=== PATIENT | female | born 1985 | race Caucasian/White ===

== ENCOUNTER 2024-04-24 14:01 | Outpatient (REF) | payer OTHER, SELFPAY ==
[2024-04-25 14:35] LABS: Amphetamine Screen Urine Not Detected (Not Detect); Barbiturates, Urine Not Detected (Not Detect); Benzodiazepines Screen Urine Not Detected (Not Detect); Buprenorphine Scr Not Detected (Not Detect); Cannabinoid Screen Urine POSITIVE (Not Detect); Cocaine Screen Urine Not Detected (Not Detect); Fentanyl, urine Not Detected (Not Detect); Methadone Screen, Urine Not Detected (Not Detect); Opiate Screen Urine Not Detected (Not Detect); Oxycodone Screen Urine Not Detected (Not Detect); Phencyclidine Screen Urine Not Detected (Not Detect)
== END 2024-04-24 14:02 | disposition home or self-care (01) ==
LOC: HO.PHPLNP 14:01
PROVIDERS: Visit Provider Psychiatry & Neurology Psychiatry
DX: F14.90 Cocaine use, unspecified, uncomplicated (principal); F32.A Depression, unspecified; F41.9 Anxiety disorder, unspecified
CPT/HCPCS: 80307

== ENCOUNTER 2024-04-25 08:30 | Outpatient (REF) | payer OTHER, SELFPAY ==
[2024-04-25 08:50] LABS: MANUAL DIFF FLAG NO
[2024-04-25 09:30] LABS: Basophils Absolute Auto 0.1 X10*3/uL (0.0-0.2); Basophils Percent Auto 0.6 % (0-2); Eosinophils Absolute Auto 0.2 X10*3/uL (0.0-0.4); Eosinophils Percent Auto 2.4 % (0-4); Hematocrit 37.7 % (37.0-47.0); Hemoglobin 12.2 g/dl (12.0-16.0); Imm Gran Abs Auto 0.03 X10*3/uL (0.00-0.03); Imm Gran Pct Auto 0.4 % (0.0-0.4); Lymphocytes Absolute Auto 1.8 X10*3/uL (1.2-4.9); Lymphocytes Percent Auto 22.9 % (20-40); Mean Corpuscular HGB Conc 32.4 g/dl (31.0-35.0); Mean Corpuscular Hemoglobin 29.5 pg (27.0-33.0); Mean Corpuscular Volume 91.1 fL (80.0-98.0); Monocytes Absolute Auto 0.6 X10*3/uL (0.1-1.2); Monocytes Percent Auto 7.8 % (2-11); Neutrophils Absolute Auto 5.2 x10*3/uL (2.0-8.3); Neutrophils Percent Auto 65.9 % (45-73); Platelet Count 414 X10*3/uL (160-400); Red Blood Count 4.14 X10*6/uL (4.20-5.50); Red Cell Distribution Width 13.4 % (11.0-16.0); White Blood Count 7.9 X10*3/uL (4.8-10.8)
[2024-04-25 10:48] LABS: Estimated Average Glucose 111 mg/dL; Hemoglobin A1C 112.8847 umol/L; Hemoglobin A1c % 5.5 % (<6.0); Total Hemoglobin (HGBA1C) 3090.4183 umol/L
[2024-04-25 11:09] LABS: Alanine Aminotransferase 61 U/L (0-31); Albumin Level 3.6 g/dL (3.5-5.0); Alkaline Phosphatase 129 U/L (39-117); Anion Gap 12 (12-20); Aspartate Amino Transferase 36 U/L (5-31); Bilirubin Total 0.4 mg/dL (0.0-1.0); Blood Urea Nitrogen 10 mg/dL (9-16); Calcium 9.1 mg/dL (8.4-10.2); Carbon Dioxide 25 mmol/L (22-29); Chloride 105 mmol/L (96-108); Estimated Glomerular Filt Rate > 60; Ferritin 33 ng/mL (10-250); Glucose Fasting 94 mg/dL (60-99); Iron 97 mcg/dL (30-160); Magnesium 2.2 mg/dL (1.6-2.6); Percent Iron Saturation 25 % (15-50); Potassium 4.2 mmol/L (3.3-5.1); Sodium 139 mmol/L (135-145); TSH reflex Free T4 0.94 uIU/mL (0.32-4.0); Total Iron Binding Capacity 388 mcg/dL (228-428); Unsaturated Iron Binding 291 ug/dL; Vitamin D 25-OH Total 28.3 ng/mL (>30)
[2024-04-25 11:25] LABS: Folate > 20.0 ng/mL (> or = 4.0); Vitamin B12 376 pg/mL (200-900)
[2024-05-01 06:48] LABS: Vitamin B1 42 nmol/L (8-30)
== END 2024-04-25 08:31 | disposition home or self-care (01) ==
LOC: HO.LAB 08:30
PROVIDERS: Psychiatry & Neurology Psychiatry; PCP Internal Medicine
DX: F41.9 Anxiety disorder, unspecified (principal); F33.9 Major depressive disorder, recurrent, unspecified; Z13.1 Encounter for screening for diabetes mellitus
CPT/HCPCS: 36415; 80053; 82306; 82607; 82728; 82746; 83036; 83540; 83735; 84425; 84443; 85025

== ENCOUNTER 2024-05-08 09:00 | Outpatient (RCR) | payer OTHER, SELFPAY ==
[2024-04-24 09:49] VITALS: BMI 29.4
[2024-04-24 09:50] VITALS: BP 122/68; PULSE 80; TEMP 36.8
--- NOTE | 2024-04-24 10:52 | PC.ADMIT ---
Patient is a 39 female who was referred to [facility] by [facility] d/t patient having positive PHELPS for cocaine prior to giving to her daughter. Patient is Post 1.5 weeks and is currently breast feeding. Patient reports history of gestational diabetes however is currently not on insulin as it appears to have resolved after giving . She has a f/u appointment later this month. Patient stated she used cocaine twice during her once in the beginning and once prior to . Last use 04/11/24. Patient also reported history of using marijuana nightly to sleep last use July 2023 and wine using weekly, last use July 2023. She is currently not using any substances. Patient stated she is following [facility] requirements including her is on a wait list for therapy, will have a power and recovery superintendent that she will be working with once completed IOP along with a parent aid. Patient is alert and oriented x4. Calm and cooperative. She presented with depressed mood and anxious affect. Reports experiencing anxiety. Denied SI, no HI. She was given a copy of her safety plan if needed. Medications reconciled with patient and patient's pharmacy. She reports taking medication as prescribed.
--- NOTE | 2024-04-24 18:01 | HO.PS.ADMBH ---
HPI Date of Service: 04/24/24 Chief Complaint: anxiety,depression,MALLORY Sources of Information: patient interviewed, chart reviewed and crisis/core team assessment reviewed HPI Narrative: Patient is a 39 yo female, 10 days , with history of polysubstance abuse, who was referred through [facility]. My daughter was born on Apr 14. I tested positive for drugs at the time...cocaine in my system so DCF came and did some parameters, and I had to enroll in IOP. Both my population health coach and DCF coordinator thought is was a good idea. I'm happy to be here. They have been really supportive and I appreciate all their help . She reports that there had been visits earlier due to testing positive for cocaine and THC at her 10 week OB visit. She reports that she and her are both trying to distance themselves from friends who use. She says she had only used a couple of times during the , but says she regrets this and is committed to recovery. She lives at home with her , her 21 yo son and their baby Belen. She says she is hoping to transition to but so far has not been able to do still having substances in her system. She denies any safety concerns at home. The baby is healthy. She has been receovering well she says. Sleep has not been great on account of night time feedings but feels she is getting a total of 8 hours and feels this is as to be expected. She reports her mood is good, stable, denies any issues with depression or mood instability. Generalized anxiety which is manageable on Lexapro 10 mg. She says sometimes the thought crosses her mind, but denies having any cravings I've been doing pretty good. It helps we're in a situation - having a at home - so we are not really going out, and we are together staying away . She also notes that having potential consequences (via DCF) also helps keep her and her on track. Overall she relays being motivated and optimistic. She denies any hopelessness or SI. Denies any aggressive ideation, HI, AH, VH or abherrent thoughts or paranoia. Past Psychiatric History: CURRENT MEDICATIONS: escitalopram 10 mg qd lorazepam (says she is usually prescribed but has not taken since before ) [facility] Medical History (Updated 05/02/24 @ 01:17 by Olive Weiss MD) Gestational diabetes Asthma Social History: , has 2 children ages 21 yo son and daughter Lives at home with and children Substance History: Reports cocaine as DOC, social use which was reportedly more regular prior to (a few times/month or less) and had been using occasionally up until when she found out at 10 weeks she was (testing positive at the time). She says she abstained for the duration of the until recently relapsing on 04/11 Reports occasional alcohol and cannabis use, last used Diagnostics Vital Signs (24Hr): Vital Signs - 24 hr 04/24/24 09:50 Temperature 98.2 F Pulse Rate 80 Blood Pressure 122/68 BMI result Body Mass Index 29.4 Meds/Allergies Meds Home Medications ?Medication ?Instructions ?Recorded ?Confirmed ?Type cetirizine 10 mg capsule (Zyrtec) 10 mg PO DAILY 04/24/24 04/24/24 History montelukast 10 mg tablet 10 mg PO BEDTIME 04/24/24 04/24/24 History (Singulair) Allergies Allergies Allergy/AdvReac Type Severity Reaction Status Date / Time Seasonal Allergies Allergy Runny Verified 04/24/24 09:48 Nose, sinus pressure. Mental Status Exam Mental Status Exam Narrative: Alert, oriented, in no acute distress. Calm, cooperative, engaged. No psychomotor agitation or neurovegetative retardation. Eye contact maintained. Mood anxious, affect variable, mood congruent. Speech normal. Thought process linear, coherent. Thought content related to stressors, future-oriented, denies any hopelessness or SI. Denies any aggressive ideation or HI. No paranoia or delusional content elicited. No evidence of psychosis. Insight and judgment limited. Assessment & Plan Assessment & Plan (1) Cocaine use disorder: Status: Acute Code(s): F14.10 - Cocaine abuse, uncomplicated (2) Depressive disorder: Status: Acute Code(s): F32.A - Depression, unspecified Plan Admit to IOP VS reviewed: marisol, BP 122/68;?80 bpm continue escitalopram 10 mg qd continue other regular medications: monelukast 10 mg, Zyrtec 10 mg Routine lab work ordered EKG, routine for baseline QTc for medication considerations UDS as indicated MassPat reviewed Continue to monitor as per protocol Patient educated on: diagnosis, medication risk/benefits and substance abuse Informed Consent: understands Reason for continued partial hosp. stay Substantial Risk for: rapid decompensation and med/psych decompensation Certification I certify that the patient needs IOP Services for a minimum of 9 hours per week of therapeutic services. I certify the patient is experiencing symptoms of such intensity that they are unable to be safely treated in a less intensive setting and would otherwise require admission to a more intensive level of care. Time Spent With Patient Time: Total time managing care of this patient today _60___ minutes.
--- NOTE | 2024-04-30 12:10 | HO.PHP ---
A referral for OP therapy was completed and faxed to [facility] central registration.
--- NOTE | 2024-04-30 14:54 | HO.PHP ---
Addendum entered by Ana Burris LCSW 05/06/24 10:24: PHP was contacted today regarding Marino's new intake for OP therapy with [facility] that was provided last week. That appointment is no longer available. The new intake for therapy with [facility] id on at 2pm with Kerri Sellers in [address] . Original Note: Annia Liu has received her aftercare appointment for OP therapy through [facility]. Pt is scheduled for 2023 at 1pm with Annmarie Medina, at the [address]
--- NOTE | 2024-05-06 10:16 | HO.PHP ---
S[employer] received a voicemail left by Marino's DCF worker, Mike Sanders requesting a call back. Pt signed a LYNN. Sugar Grinder returned his call this morning at roughly 10:05 am. Mike did not answer, a voicemail was left with phone availability after 2:00pm.
--- NOTE | 2024-05-06 15:06 | HO.PHP ---
Marino's DCF worker Mike Sanders contacted marketing writer to confirm Marino's enrollment and engagement level at [facility]. Mike states he is the security investigator and will be handling the case over to a case manager specialist who will also be reaching out.
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
--- NOTE | 2024-05-08 23:34 | P.PNPSP_ITS ---
Subjective Subjective Date of Service: 05/08/24 Reason For Visit: anxiety,depression,MALLORY Interim History: Patient seen for follow-up, anticipating discharge at the end of program today.? At first I was anxious about being here, but each day it got easier. Overall had a positive experience and feels it was very helpful. She has been able to maintain receovery and denies any thoughts or cravings. Feels she is in a good head space. Denies any acute issues or concerns. Medication compliant, medications well- tolerated. Denies any adverse effects.? Mood is stable.? Denies any hopelessness or SI. Denies any aggressive ideation or HI. Specifically patient endorses healthy attachment to baby, denies any issues with intrusive thoughts, denies any thoughts of harming self or baby. Denies any paranoia or AH or VH. Sleep as good as can be expected and is able to fall asleep when baby goes back to sleep. Believes she gets close to 8 hours in total. Appetite, energy stable. Medication Compliance: Yes Side effects from medications: No Attending Groups: Yes Review of Systems Acute medical concerns: No Mental Status Exam Mental Status Exam Narrative: Alert, oriented, in no acute distress. Calm, cooperative, engaged. Mood stable affect appropriate. Speech normal. Thought process linear, coherent, goal- directed. Future-oriented, denies any hopelessness or SI. Denies any aggressive ideation or HI. No paranoia or delusional content elicited. No evidence of psychosis. Insight good and judgment fair to good. Diagnostics Vital Signs (24Hr): BMI result Body Mass Index 29.4 Assessment & Plan Assessment & Plan (1) Cocaine use disorder: Status: Acute Code(s): F14.10 - Cocaine abuse, uncomplicated (2) Depressive disorder: Status: Acute Code(s): F32.A - Depression, unspecified (3) Alcohol abuse: Status: Acute Code(s): F10.10 - Alcohol abuse, uncomplicated Plan Discharge from [facility] continue propranolol 10 mg BID prn anxiety (pt reports hx of mild asthma, stable, does not use inhalers. is aware of bronchoconstr effects/exacerbation breathing - will stop and notify provider, could be switched to atenolol cardioselective B1 sona) continue buspirone 7.5 mg BID for now (8am/5pm), eventually titrate to 10 mg BID as tolerated (will work with OP provider for further titration to TID continue escitalopram 10 mg qd continue other regular medications: monelukast 10 mg, Zyrtec 10 mg we had discussed naltrexone, topiramate, amantadine as potential treatments for MALLORY however pt declined, she was interested in gabapentin in future if needed support for sleep, for now weighed against concerns of becoming too tired to attend to . Routine lab work reviewed with patient Pt previous rx lorazepam regularly in the past (last filled 10/28/23 per [facility]). I advise avoiding being regularly prescribed BZD in the future due to risk of tolerance/complicating alcohol abuse. Patient acknowledges risk potential and agrees with concerns. Safety plan reviewed Will defer further medication management to outpatient provider Patient educated on: diagnosis, medication risk/benefits, substance abuse and medical condition Informed Consent: understands Reason for contiued partial hosp. stay Substantial Risk for: stable for discharge Certification I certify that the patient needs IOP Services for a minimum of 9 hours per week of therapeutic services. I certify the patient is experiencing symptoms of such intensity that they are unable to be safely treated in a less intensive setting and would otherwise require admission to a more intensive level of care. Total time managing care of this patient today __30__ minutes. Discharge Plan Discharge Attending provider: Olive Weiss Medications: New buspirone 5 mg tablet 5 mg PO TID Qty: 30 0RF propranolol 10 mg tablet 10 mg PO BID PRN (Reason: anxiety) Qty: 20 0RF buspirone 10 mg tablet 10 mg PO TID Qty: 30 0RF Rx Instructions: =Dose increase= cyanocobalamin (vitamin B-12) [Vitamin B-12] 500 mcg tablet 500 mcg PO DAILY Qty: 30 1RF cholecalciferol (vitamin D3) [Vitamin D3] 50 mcg (2,000 unit) capsule 100 mcg PO DAILY Qty: 60 0RF Continued montelukast [Singulair] 10 mg Tablet 10 mg PO BEDTIME Zyrtec 10 mg Capsule 10 mg PO DAILY escitalopram oxalate [Lexapro] 10 mg Tablet 10 mg PO DAILY Qty: 30 0RF Stand Alone Forms: Patient Portal Discharge page Print Language: Georgian
== END 2024-05-08 23:59 | disposition home or self-care (01) ==
LOC: HO.IOP 09:00
PROVIDERS: Visit Provider Psychiatry & Neurology Psychiatry
DX: F32.A Depression, unspecified (principal); F14.10 Cocaine abuse, uncomplicated; F10.10 Alcohol abuse, uncomplicated; Z79.899 Other long term (current) drug therapy
CPT/HCPCS: S9480